=== PATIENT | female | born 1985 | race Caucasian/White ===

== ENCOUNTER 2017-08-19 04:31 | Emergency (ER) | payer OTHER ==
--- NOTE | 2017-08-19 05:35 | EDM.PDOC ---
ED HPI GENERAL MEDICAL PROBLEM - General Chief Complaint: TECHNICAL SOLUTIONS DIRECTOR Problem Stated Complaint: 5 WEEKS BLEEDING Time Seen by Provider: 08/19/17 05:20 Source of Information: Reports: Patient, RN History Limitations: Reports: No Limitations - History of Present Illness INITIAL COMMENTS - FREE TEXT/NARRATIVE: 32 yo female at estimated 5 weeks gestation started having some vaginal bleeding and pelvic discomfort about 24 hrs ago. Is taking acetaminophen with partial relief. Bleeding is not heavy. Does not know her blood type, but did not require Rhogam after her first . Does not need a note for work. 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 pelvic pain Pain Score (Numeric/FACES): 7 Past Medical History HEENT History: Reports: Impaired Vision TECHNICAL SOLUTIONS DIRECTOR History: Reports: - Infectious Disease History Infectious Disease History: Reports: Chicken Pox Social & Family History - Tobacco Use Smoking Status *Q: Never Smoker - Caffeine Use Caffeine Use: Reports: Coffee - Recreational Drug Use Recreational Drug Use: No ED ROS GENERAL - Review of Systems Review Of Systems: See Below Constitutional: Reports: No Symptoms HEENT: Reports: No Symptoms Respiratory: Reports: No Symptoms Cardiovascular: Reports: No Symptoms GI/Abdominal: Reports: No Symptoms : Reports: Pain (mild pelvic pain), Other (vaginal bleeding) Musculoskeletal: Reports: No Symptoms Skin: Reports: No Symptoms Neurological: Reports: No Symptoms ED EXAM - Physical Exam Exam: See Below Exam Limited By: No Limitations General Appearance: Alert, WD/WN, No Apparent Distress Eye Exam: Bilateral Eye: Normal Inspection (no conjunctival) Ears: Normal External Exam, Normal Canal, Hearing Grossly Normal Nose: Normal Inspection, Normal Mucosa, No Blood Throat/Mouth: Normal Inspection, Normal Lips, Normal Oropharynx, Normal Voice, No Airway Compromise Head: Atraumatic, Normocephalic Neck: Normal Inspection Respiratory/Chest: No Respiratory Distress, No Accessory Muscle Use Cardiovascular: Regular Rate, Rhythm Movement: Not Appreciated (too early) Extremities: Normal Inspection, Normal Range of Motion, Non-Tender, No Pedal Edema Neurological: Alert, Oriented, CN II-XII Intact, Normal Cognition, No Motor/ Sensory Deficits Psychiatric: Normal Affect, Normal Mood Skin Exam: Warm, Dry, Intact, Normal Color, No Rash Course - Vital Signs Last Recorded V/S: Last Vital Signs Temp 36.9 C 08/19/17 05:03 Pulse 110 H 08/19/17 05:03 Resp 18 08/19/17 05:03 BP 126/84 08/19/17 05:03 Pulse Ox 100 08/19/17 05:03 Departure - Departure Time of Disposition: 05:36 Disposition: Home, Self-Care 01 Condition: Good Clinical Impression: Incomplete - Discharge Information Referrals: PCP,None [Primary Care Provider] - Forms: ED Department Discharge Additional Instructions: Acetaminophen and/or ibuprofen as needed for pain relief. Drink ample fluids. Recheck for heavy persistent bleeding or fever. F/U with your provider as needed.
== END 2017-08-19 05:43 | disposition home or self-care (01) ==
LOC: JP.ED 04:31
DX: O03.4 Incomplete spontaneous abortion without complication (principal)
CPT/HCPCS: 99284